=== PATIENT | male | born 1950 | race Caucasian/White ===

== ENCOUNTER → 2018-07-14 | Outpatient (CLI) | payer MEDICARE, OTHER ==
[2018-07-14] MEDS: SOD CHLORIDE 0.9% 100 ML ONE (11:17)
[2018-07-14] MEDS: IOHEXOL 100 ML ONE (11:18)
--- NOTE | 2018-07-14 11:18 | NUR ---
Procedure Ordered:CT CORONARY ANGIO Reason for Exam Today:CHEST PAIN Previous Exams: Allergies:NKDA Current Medications Taken: Glucophage ( ) Metformin ( ) Previous reaction to contrast media: Yes ( ) No (X ) : Yes ( ) No ( X) Asthma: Yes ( ) No (X ) Diabetes: Yes ( ) No (X ) Myeloma: Yes ( ) No (X ) Heart Disease: Yes ( X) No ( ) Cardiac Disease: Yes (X ) No ( ) Kidney Disease: Yes ( ) No (X ) Vascular Disease: Yes ( ) No ( X) Patient Teaching done: Yes ( ) No ( ) Technical Communication Teacher Used: Yes ( ) No ( ) Name of Technical Communication Teacher: Language Used: As part of the test requested by your doctor, contrast media may be injected into your vein while the x-rays are being taken. Occasionally, reactions from IV contrast may occur. The physician and staff of this hospital are trained to treat these reactions. Select the type of Contrast that will be given to patient: Isovue 300 ( ) Isovue 370 ( ) Visipaque ( ) Cystografin ( ) OMNIPAQUE 350 (X) Gastrographin ( ) Redi-cat ( ) Volumen ( ) Amount of contrast to be given: 100CC IV (X ) PO ( ) Date given:07/14/18 Lab Values: BUN: 21 Creatinine:1.37 Reason why contrast cannot be given: Location of patient pre-procedure:OUTPATIENT WAITING ROOM Location of patient post procedure:HOME PT TOLERATED IV CONTRAST INJECTION WELL
[2018-07-14] MEDS: METOPROLOL 5 MG INJ ONE (11:30)
[2018-07-14] MEDS: NITROGLYCERIN AEROSOL (4.9 GM) ONE (11:31)
== END | disposition home or self-care (01) ==
LOC: C/S 09:37 → EDSEX 11:00
PROVIDERS: ATTEND Internal Medicine Interventional Cardiology
DX: R94.39 Abnormal result of other cardiovascular function study (principal); R07.9 Chest pain, unspecified
CPT/HCPCS: 75571; 75574; Q9967